=== PATIENT | female | born 1965 | race Two or more races ===

== ENCOUNTER 2020-02-20 22:49 | Emergency (ER) | payer MEDICAID ==
[~2020-02-20] VITALS: Ht 152.4 cm; Wt 68.0 kg
[~2020-02-20 22:49] MED LIST: AMIT25TA9 PO; ATEN-42 PO; DOCU-150 PO; FERR-63 PO; HYDR12.529 PO; IBUP-2029 PO; LISI40TA4 PO; OMEP20TA2 PO; SOD4000S2 PO
[2020-02-20 22:52] VITALS: BP 150/76
== END 2020-02-20 23:22 | disposition home or self-care (01) ==
LOC: ER 22:49
DX: R09.89 Other specified symptoms and signs involving the circulatory and respiratory systems (principal); I10 Essential (primary) hypertension; Z88.6 Allergy status to analgesic agent
CPT/HCPCS: 99283